=== PATIENT | male | born 1985 | race Caucasian/White ===

== ENCOUNTER 2021-01-02 20:56 | Inpatient (IN) | payer MEDICAID ==
[~2021-01-02] VITALS: Ht 165.1 cm; Wt 63.5 kg
[2021-01-02] MEDS ORDERED: LORazepam 2 MG/ML VIAL IM ONE (21:15)
[2021-01-02] MEDS ORDERED: HALOPERIDOL LACTATE 5 MG/ML VIAL IM ONE (21:15)
[2021-01-02] MEDS ORDERED: DiphenhydrAMINE HCL 50 MG/ML VIAL IM ONE (21:15)
[2021-01-02] MEDS ORDERED: ZOLPIDEM TARTRATE 10 MG TABLET PO PRN (22:00)
[2021-01-02 22:05] LABS: COVID AG,FIA SOURCE NASOPHARYNGEAL
[2021-01-02 22:39] LABS: BASOPHILS % (AUTO) 0.6 % (0.0-2.0); EOSINOPHILS % (AUTO) 1.9 % (1.0-6.0); HEMOGLOBIN 13.7 g/dL (13.5-17.5); LYMPHOCYTES # (AUTO) 3.1 K/uL (1.0-4.8); LYMPHOCYTES % (AUTO) 36.8 % (22.0-44.0); MEAN CORPUSCULAR HEMOGLOBIN 32.2 pg (26.0-34.0); MEAN CORPUSCULAR HGB CONC 33.5 G/dL (31.0-37.0); MEAN CORPUSCULAR VOLUME 96 fL (80-100); MONOCYTES # (AUTO) 0.6 K/uL (0.1-1.0); MONOCYTES % (AUTO) 6.6 % (2.0-9.0); NEUTROPHILS # (AUTO) 4.6 K/uL (1.8-7.7); NEUTROPHILS % (AUTO) 54.1 % (40.0-70.0); PLATELET COUNT (AUTO) 343 K/uL (150-450); RED BLOOD CELL COUNT(AUTO) 4.26 MIL/uL (4.50-5.90); RED CELL DISTRIBUTION WIDTH 13.3 % (11.5-14.5)
[2021-01-02 22:49] LABS: ANION GAP 11 mmol/L (8-16); CALCIUM, TOTAL 8.1 mg/dL (8.8-10.5); CARBON DIOXIDE 24 mmol/L (22-29); CHLORIDE 102 mmol/L (98-107); CREATININE 0.93 mg/dL (0.60-1.30); GLOMERULAR FILTR. RATE CALC > 60 mL/min (>60); GLUCOSE,RANDOM 96 mg/dL (70-110); POTASSIUM 3.5 mmol/L (3.5-5.1); SODIUM SERUM 137 mmol/L (136-145); UREA NITROGEN, BLOOD 20 mg/dL (7-18)
[2021-01-02 22:54] LABS: ALANINE AMINOTRANSFERASE 36 U/L (12-78); ALBUMIN 4.1 g/dL (3.4-5.0); ALKALINE PHOSPHATASE 82 U/L (46-116); ASPARTATE AMINOTRANSFERASE 34 U/L (15-37); BILIRUBIN,TOTAL 0.2 mg/dL (0.1-1.0); TOTAL PROTEIN, SERUM 7.3 g/dL (6.4-8.2)
[2021-01-03 01:30] VITALS: BP 118/78
[2021-01-03] MEDS ORDERED: ONDANSETRON HCL 4 MG TABLET PO PRN (09:00)
[2021-01-03] MEDS ORDERED: MAG HYDROX/AL HYDROX/SIMETH ES 30 ML SUSPENSION UDCUP PO PRN (09:00)
[2021-01-03] MEDS ORDERED: BACITRACIN 28 GM OINTMENT TP PRN (09:00)
[2021-01-03] MEDS ORDERED: PETROLATUM,WHITE 28 GM JELLY TP PRN (09:00)
[2021-01-03] MEDS ORDERED: BENZOCAINE/MENTHOL LOZENGE PO PRN (09:00)
[2021-01-03] MEDS ORDERED: IBUPROFEN 600 MG TABLET PO PRN (09:00)
[2021-01-03] MEDS ORDERED: ALBUTEROL SULFATE HFA 90 MCG/PUFF 8 GM INHALER IH PRN (09:00)
[2021-01-03] MEDS ORDERED: LOPERAMIDE HCL 2 MG CAPSULE PO PRN (09:00)
[2021-01-03] MEDS ORDERED: ACETAMINOPHEN 325 MG TABLET PO PRN (09:00)
[2021-01-03] MEDS ORDERED: MAGNESIUM HYDROXIDE SUSPENSION 30 ML UDCUP PO PRN (09:00)
[2021-01-03] MEDS ORDERED: DOCUSATE SODIUM 100 MG CAPSULE PO PRN (09:00)
[2021-01-03] MEDS ORDERED: CloNIDine HCL 0.1 MG TABLET PO PRN (09:00)
[2021-01-03] MEDS ORDERED: OMEPRAZOLE 20 MG CAPSULE PO PRN (09:00)
[2021-01-03 09:25] VITALS: BP 95/50
[2021-01-03 16:15] VITALS: BP 103/61
[2021-01-04 04:20] VITALS: BP 111/68
[2021-01-04 08:06] LABS: CHOL/HDL RATIO 3.1 (4.2-7.3)
[2021-01-04 08:25] VITALS: BP 120/80
[2021-01-04] MEDS: HALOPERIDOL 5 MG TABLET PO PRN (15:48)
[2021-01-04] MEDS: LORazepam 2 MG TABLET PO PRN (15:49)
[2021-01-04 16:17] VITALS: BP 100/73
[2021-01-05] MEDS: RisperiDONE 1 MG TABLET PO SCH ×2 (08:29→16:23)
[2021-01-05 08:48] VITALS: BP 96/55
[2021-01-05] MEDS: HALOPERIDOL 5 MG TABLET PO PRN ×2 (12:15→16:23)
[2021-01-05] MEDS: LORazepam 2 MG TABLET PO PRN ×2 (12:15→16:23)
[2021-01-05 16:10] VITALS: BP 100/60
[2021-01-06 06:19] VITALS: BP 80/62
[2021-01-06] MEDS: HALOPERIDOL 5 MG TABLET PO PRN ×2 (08:00→18:10)
[2021-01-06] MEDS: LORazepam 2 MG TABLET PO PRN ×2 (08:00→18:11)
[2021-01-06] MEDS: RisperiDONE 1 MG TABLET PO SCH ×2 (08:52→16:14)
[2021-01-06 09:12] VITALS: BP 112/61
[2021-01-06 16:33] VITALS: BP 117/73
[2021-01-07 05:55] VITALS: BP 109/61
[2021-01-07] MEDS: LORazepam 2 MG TABLET PO PRN (08:15)
[2021-01-07] MEDS: HALOPERIDOL 5 MG TABLET PO PRN (08:15)
[2021-01-07] MEDS: RisperiDONE 1 MG TABLET PO SCH (08:53)
[2021-01-07 09:29] VITALS: BP 123/76
[2021-01-07] MEDS ORDERED: RISP1TAB98 PO (13:32)
[2021-01-08 05:06] LABS: HIV 1-2 SCREEN 4TH GEN W/RFLX Non Reactive (Non Reactive)
== END 2021-01-07 14:59 | disposition home or self-care (01) | DRG 750 ==
LOC: EMS 20:56 → B3A 22:00
PROVIDERS: ADMIT Psychiatry & Neurology Psychiatry; ATTEND Psychiatry & Neurology Psychiatry
DX: F20.9 Schizophrenia, unspecified (principal); Z78.1 Physical restraint status; F10.129 Alcohol abuse with intoxication, unspecified; F12.10 Cannabis abuse, uncomplicated; F41.9 Anxiety disorder, unspecified; G47.00 Insomnia, unspecified; Z20.822 Contact with and (suspected) exposure to COVID-19; F17.210 Nicotine dependence, cigarettes, uncomplicated
CPT/HCPCS: 80053; 80061; 85025; 87389; 99285; G0480; J1200; J1630; J2060

== ENCOUNTER 2021-01-13 00:44 | Inpatient (IN) | payer MEDICAID ==
[~2021-01-13] VITALS: Ht 175.3 cm; Wt 64.6 kg
[2021-01-13] VITALS (7 sets, daily range): BP systolic 104–118; BP diastolic 67–76
[~2021-01-13 00:44] MED LIST: RISP1TAB98 PO
[2021-01-13] MEDS ORDERED: LORazepam 2 MG/ML VIAL ONE (01:25)
[2021-01-13] MEDS ORDERED: DiphenhydrAMINE HCL 50 MG/ML VIAL ONE (01:25)
[2021-01-13] MEDS ORDERED: HALOPERIDOL LACTATE 5 MG/ML VIAL ONE (01:25)
[2021-01-13] MEDS ORDERED: HALOPERIDOL LACTATE 5 MG/ML VIAL IM ONE (01:30)
[2021-01-13] MEDS ORDERED: LORazepam 2 MG/ML VIAL IM ONE (01:30)
[2021-01-13] MEDS ORDERED: DiphenhydrAMINE HCL 50 MG/ML VIAL IM ONE (01:30)
[2021-01-13 01:46] LABS: COVID AG,FIA SOURCE NASOPHARYNGEAL
[2021-01-13] MEDS ORDERED: ZOLPIDEM TARTRATE 10 MG TABLET PO PRN (02:45)
[2021-01-13 02:54] LABS: BASOPHILS % (AUTO) 0.7 % (0.0-2.0); EOSINOPHILS % (AUTO) 1.4 % (1.0-6.0); HEMATOCRIT 36.1 % (41-53); LYMPHOCYTES # (AUTO) 3.5 K/uL (1.0-4.8); LYMPHOCYTES % (AUTO) 45.6 % (22.0-44.0); MEAN CORPUSCULAR HEMOGLOBIN 31.9 pg (26.0-34.0); MEAN CORPUSCULAR HGB CONC 33.3 G/dL (31.0-37.0); MEAN CORPUSCULAR VOLUME 96 fL (80-100); MONOCYTES # (AUTO) 0.6 K/uL (0.1-1.0); MONOCYTES % (AUTO) 7.9 % (2.0-9.0); NEUTROPHILS # (AUTO) 3.4 K/uL (1.8-7.7); NEUTROPHILS % (AUTO) 44.4 % (40.0-70.0); PLATELET COUNT (AUTO) 280 K/uL (150-450); RED BLOOD CELL COUNT(AUTO) 3.77 MIL/uL (4.50-5.90)
[2021-01-13 03:10] LABS: CARBON DIOXIDE 24 mmol/L (22-29); CREATININE 0.68 mg/dL (0.60-1.30); GLOMERULAR FILTR. RATE CALC > 60 mL/min (>60); GLUCOSE,RANDOM 85 mg/dL (70-110); UREA NITROGEN, BLOOD 11 mg/dL (7-18)
[2021-01-13 03:16] LABS: ALANINE AMINOTRANSFERASE 33 U/L (12-78); ALBUMIN 3.4 g/dL (3.4-5.0); ALKALINE PHOSPHATASE 65 U/L (46-116); ANION GAP 13 mmol/L (8-16); ASPARTATE AMINOTRANSFERASE 41 U/L (15-37); CHLORIDE 108 mmol/L (98-107); POTASSIUM 4.1 mmol/L (3.5-5.1); SODIUM SERUM 145 mmol/L (136-145); TOTAL PROTEIN, SERUM 6.4 g/dL (6.4-8.2)
[2021-01-13 03:27] LABS: BILIRUBIN,TOTAL 0.1 mg/dL (0.1-1.0)
[2021-01-13 10:17] LABS: AMPHET/METH SCREEN,URINE POSITIVE (NEGATIVE); BARBITURATE SCREEN, URINE NEGATIVE (NEGATIVE); BENZODIAZEPINES SCREEN,URINE NEGATIVE (NEGATIVE); CANNABINOID SCREEN,URINE POSITIVE (NEGATIVE); COCAINE SCREEN,URINE NEGATIVE (NEGATIVE); METHADONE SCREEN, URINE NEGATIVE (NEGATIVE); OPIATE SCREEN,URINE NEGATIVE (NEGATIVE)
[2021-01-13 10:23] LABS: PHENCYCLIDINE SCREEN,URINE NEGATIVE (NEGATIVE)
[2021-01-14] VITALS (7 sets, daily range): BP systolic 101–138; BP diastolic 57–88
[2021-01-14] MEDS ORDERED: ACETAMINOPHEN 325 MG TABLET PO PRN ×2 (07:00→16:30)
[2021-01-14] MEDS: HALOPERIDOL 5 MG TABLET PO PRN ×2 (09:48→17:03)
[2021-01-14] MEDS: LORazepam 2 MG TABLET PO PRN ×2 (09:48→17:03)
[2021-01-14] MEDS ORDERED: CloNIDine HCL 0.1 MG TABLET PO PRN (16:30)
[2021-01-14] MEDS ORDERED: IBUPROFEN 600 MG TABLET PO PRN (16:30)
[2021-01-14] MEDS ORDERED: ALBUTEROL SULFATE HFA 90 MCG/PUFF 8 GM INHALER IH PRN (16:30)
[2021-01-14] MEDS ORDERED: MAGNESIUM HYDROXIDE SUSPENSION 30 ML UDCUP PO PRN (16:30)
[2021-01-14] MEDS ORDERED: MAG HYDROX/AL HYDROX/SIMETH ES 30 ML SUSPENSION UDCUP PO PRN (16:30)
[2021-01-14] MEDS ORDERED: OMEPRAZOLE 20 MG CAPSULE PO PRN (16:30)
[2021-01-14] MEDS ORDERED: PETROLATUM,WHITE 28 GM JELLY TP PRN (16:30)
[2021-01-14] MEDS ORDERED: DOCUSATE SODIUM 100 MG CAPSULE PO PRN (16:30)
[2021-01-14] MEDS ORDERED: LOPERAMIDE HCL 2 MG CAPSULE PO PRN (16:30)
[2021-01-14] MEDS ORDERED: BACITRACIN 28 GM OINTMENT TP PRN (16:30)
[2021-01-14] MEDS ORDERED: ONDANSETRON HCL 4 MG TABLET PO PRN (16:30)
[2021-01-14] MEDS ORDERED: BENZOCAINE/MENTHOL LOZENGE PO PRN (16:30)
[2021-01-15 06:43] VITALS: BP 123/78
[2021-01-15 09:59] VITALS: BP 111/60
[2021-01-15] MEDS: HALOPERIDOL 5 MG TABLET PO PRN ×2 (10:08→16:05)
[2021-01-15] MEDS: LORazepam 2 MG TABLET PO PRN ×2 (10:08→16:05)
[2021-01-15] MEDS: RisperiDONE 1 MG TABLET PO SCH ×2 (12:27→16:05)
[2021-01-15 16:32] VITALS: BP 117/58
[2021-01-16 06:20] VITALS: BP 109/52
[2021-01-16 08:19] VITALS: BP 112/81
[2021-01-16] MEDS: RisperiDONE 1 MG TABLET PO SCH (09:00)
== END 2021-01-16 15:18 | disposition home or self-care (01) | DRG 750 ==
LOC: EMS 00:49 → B3A 10:43
PROVIDERS: ADMIT Psychiatry & Neurology Psychiatry; ATTEND Psychiatry & Neurology Psychiatry
DX: F25.9 Schizoaffective disorder, unspecified (principal); Z78.1 Physical restraint status; F10.129 Alcohol abuse with intoxication, unspecified; F12.10 Cannabis abuse, uncomplicated; F41.9 Anxiety disorder, unspecified; G47.00 Insomnia, unspecified; Z20.822 Contact with and (suspected) exposure to COVID-19; M79.605 Pain in left leg; W18.39XA Other fall on same level, initial encounter; Y93.89 Activity, other specified; Y92.89 Other specified places as the place of occurrence of the external cause; Y99.8 Other external cause status; Z87.891 Personal history of nicotine dependence
CPT/HCPCS: 80053; 85025; 99291; G0480; J1200; J1630; J2060

== ENCOUNTER 2021-01-13 19:48 | Emergency (ER) | payer MEDICAID ==
[~2021-01-13] VITALS: Ht 165.1 cm; Wt 64.5 kg
[2021-01-13 23:00] VITALS: BP 122/71
== END 2021-01-13 23:16 | disposition home or self-care (01) ==
LOC: EMS 19:50
DX: S93.602A Unspecified sprain of left foot, initial encounter (principal); F17.210 Nicotine dependence, cigarettes, uncomplicated; F12.90 Cannabis use, unspecified, uncomplicated; X58.XXXA Exposure to other specified factors, initial encounter; Y93.39 Activity, other involving climbing, rappelling and jumping off; Y92.89 Other specified places as the place of occurrence of the external cause; Y99.8 Other external cause status
CPT/HCPCS: 99283